=== PATIENT | male | born 1950 | race Caucasian/White ===

== ENCOUNTER → 2018-08-23 | Outpatient (CLI) | payer OTHER ==
--- NOTE | 2018-08-23 16:41 | Diagnostic Imaging Report ---
EXAM: XR CHEST 2 VIEWS DATE: 08/23/2018 3:40 PM INDICATION: Abnormality pulmonary function test, smoker COMPARISON: None FINDINGS: Lines and Tubes: None Heart and Mediastinum: No acute cardiomediastinal findings. Lungs and Pleura: Streaky opacities in the lung bases. Nodular density right lung base. Bones and Soft Tissues: No acute findings. IMPRESSION: 1. Streaky basilar opacities may represent atelectasis. 2. Small nodular density right lung base, possibly granuloma. 3. Radiographic follow-up and/or CT recommended given lack of comparisons. Signed by: Dr. Ulices Jarrett MD on 08/23/2018 4:37 PM
== END ==
LOC: RAD 15:32
PROVIDERS: ATTEND Family Medicine
DX: R94.2 Abnormal results of pulmonary function studies (principal)
CPT/HCPCS: 71046

== ENCOUNTER → 2018-09-06 | Outpatient (CLI) | payer OTHER ==
[~2018-09-06] MED LIST: IOPAMIDOL 370 MG/ML 200 ML INFUS..BTL INJ ONE; SODIUM CHLORIDE 0.9% 50ML 50 ML ONE
[2018-09-06 08:29] LABS: BLOOD UREA NITROGEN 11 mg/dL (7-26); BUN/CREATININE RATIO 11 (6-25); CREATININE, SERUM 0.99 mg/dL (0.72-1.25); EST GLOMERULAR FILTRATION RATE > 60 ML/MIN (60-)
--- NOTE | 2018-09-06 09:25 | Diagnostic Imaging Report ---
EXAM: CT Chest WITH contrast 09/06/2018 7:52 AM INDICATION: Abnormal PFTs COMPARISON: Chest radiograph 08/23/18. TECHNIQUE: Chest was scanned utilizing a multidetector helical scanner from the lung apex through the level of the adrenal glands without administration of IV contrast. Coronal and sagittal reformations were obtained. Routine protocol was performed. IV CONTRAST: 100 mL of Isovue 370 RADIATION DOSE: Total DLP: 477.8 mGy*cm COMPLICATIONS: None FINDINGS: LINES/ TUBES: None. LUNGS AND AIRWAYS: The central airways are patent. There is biapical pleural-parenchymal thickening. There is a 6 mm solid pulmonary nodule in the left upper lobe on series 3, image 17. 2 mm calcified subpleural nodule in the right upper lobe on image 30. There is a 6 mm calcified granuloma in the right lower lobe on image 54. PLEURA: The pleural spaces are clear. HEART AND MEDIASTINUM: The thyroid gland is normal. There are calcified right peribronchial lymph nodes. No mediastinal, hilar or axillary lymphadenopathy. No cardiomegaly or pericardial effusion. Scattered coronary atherosclerosis. UPPER ABDOMEN: Limited non-contrast views of the upper abdomen show no abnormality within the visualized adrenal glands. There is diffuse mild fatty liver. There are calcified splenic granulomas. BONES AND SOFT TISSUES: No acute bony abnormality. No suspicious lytic or blastic lesions. Mild degenerative changes in the thoracic spine. IMPRESSION: No acute intrathoracic abnormality. Non-calcified 6 mm left upper lobe solid pulmonary nodule. Given the presence of calcified granulomas and calcified intrathoracic lymph nodes, the finding may represent a non-calcified granuloma. However a follow-up chest CT is suggested in 6-12 months to assess for stability. Sequela of prior granulomatous disease as above. Diffuse mild fatty liver. Signed by: Dr. Jhonathan Gray MD on 09/06/2018 9:22 AM
== END ==
LOC: CT 07:41
PROVIDERS: ATTEND Family Medicine
DX: R94.2 Abnormal results of pulmonary function studies (principal)
CPT/HCPCS: 36415; 71260; 82565; 84520; Q9967

== ENCOUNTER → 2018-10-29 | Day surgery (SDC) | payer OTHER ==
--- NOTE | 2018-10-28 14:31 | Diagnostic Imaging Report ---
EXAMINATION: PA and lateral views of the chest. COMPARISON: 08/23/2018, CT chest 09/06/2018 CLINICAL HISTORY: Preoperative study for circumcision DISCUSSION: Lungs are well-inflated. Slight granulomata in the right lower lobe. 6 mm noncalcified left apical nodule described on comparison CT is not identified by plain radiography. No consolidation, pleural effusion, or pneumothorax. Stable linear scar or atelectasis in the right middle lobe. Diffuse calcification of the anterior spinal longitudinal ligament. IMPRESSION: No acute cardiopulmonary abnormalities. Signed by: Dr. Geo Davis M.D. on 10/28/2018 2:27 PM
[~2018-10-29] MED LIST changes: +BUPIVACAINE 0.25% 30ML SDV INJ ONE; +CALCIUM PO; +CEFAZOLIN SOD 1 GM/NS 50ML 50 ML IV ONE; +DEXAMETHASONE SOD PHOS INJ 4 MG/ML VIAL ONE; +FENTANYL CITRATE/PF 100MCG/2 ML INJ ONE; +FIBERCON625 MG PO; +FISH OIL 1,4001 EACH PO; +HYZAAR 100-251 EACH PO; -IOPAMIDOL 370 MG/ML 200 ML INFUS..BTL INJ ONE; +LIDOCAINE HCL 2% LOCAL INJ 5 ML SDV VIAL INJ ONE; +LORATADINE10 MG PO; +METFORMIN HCL500 MG PO; +MIDAZOLAM HCL 2 MG/2 ML VIAL ONE; +NEOSTIGMINE 1 MG/ML 10ML VIAL ONE; +NIACIN100 MG PO; +ONDANSETRON HCL INJ 2MG/ML 2ML 2 MG/ML VIAL ONE; +PREVACID15 MG PO; +PROPOFOL IV EMULSION 10 MG/ML 20 ML VIAL ONE; +SEVOFLURANE INHAL SOLN 250 ML PEN BTL ONE; -SODIUM CHLORIDE 0.9% 50ML 50 ML ONE; +ZOCOR20 MG PO
--- OUTSIDE RECORDS SUMMARY | 2018-10-29 08:07 | XMS REPORT ---
Author [facility] Address Unknown Phone Unavailable Care Team Providers Care Dna Sequencing Associate Name Role Phone ASHLIE WELLS Unavailable Unavailable SHELBI PHELAN Unavailable Unavailable Problems This patient has no known problems. Allergies, Adverse Reactions, Alerts This patient has no known allergies or adverse reactions. Medications This patient has no known medications. Results Test Description Test Time Test Comments Text Results Atomic Results Result Comments CHEST 2 VIEWS 2018-10-28 14:23:00 [place] [address] Patient Name: CHELSI HERNANDEZ MR #: [id number] : 1950 Age/Sex: 68/M Req #: [id number] Adm Physician: Ordered by: ASHLIE WELLS MD Report #: [id number] Location: OR Room/Bed: Procedure: [id number] DX/CHEST 2 VIEWS Exam Date: Exam Time: REPORT STATUS: Signed EXAMINATION: PA and lateral views of the chest. COMPARISON: 08/23/2018, CT chest 09/06/2018 CLINICAL HISTORY: Preoperative study for circumcision DISCUSSION: Lungs are well-inflated. Slight granulomata in the right lower lobe. 6 mm noncalcified left apical nodule described on comparison CT is not identified by plain radiography. No consolidation, pleural effusion, or pneumothorax. Stable linear scar or atelectasis in the right middle lobe. Diffuse calcification of the anterior spinal longitudinal ligament. IMPRESSION: No acute cardiopulmonary abnormalities. Signed by: Dr. Leonor Adkins M.D. on 10/28/2018 2:27 PM Dictated By: LEONOR ADKINS MD 26 Transcribed By: VIDHI on 10/28/181426 COPY TO: ASHLIE WELLS MD CT CHEST W 2018-09-06 09:11:00 [place] [address] Patient Name: CHELSI HERNANDEZ MR #: [id number] : 1950 Age/Sex: 68/M Req #: [id number] Adm Physician: Ordered by: SHELBI PHELAN MD Report #: [id number] Location: CT Room/Bed: Procedure: [id number] CT/CT CHEST W Exam Date: 09/06/18 Exam Time: 0850 REPORT STATUS: Signed EXAM: CT Chest WITH contrast 09/06/2018 7:52 AM INDICATION: Abnormal PFTs COMPARISON: Chest radiograph 08/23/18. TECHNIQUE: Chest was scanned utilizing a multidetector helical scanner from the lung apex through the level of the adrenal glands without administration of IV contrast. Coronal and sagittal reformations were obtained. Routine protocol was performed. IV CONTRAST: 100 mL of Isovue 370 RADIATION DOSE: Total DLP: 477.8 mGy*cm COMPLICATIONS: None FINDINGS: LINES/ TUBES: None. LUNGS AND AIRWAYS: The central airways are patent. There is biapical pleural-parenchymal thickening. There is a 6 mm solid pulmonary nodule in the left upper lobe on series 3, image 17. 2 mm calcified subpleural nodule in the right upper lobe on image 30. There is a 6 mm calcified granuloma in the right lower lobe on image 54. PLEURA: The pleural spaces are clear. HEART AND MEDIASTINUM: The thyroid gland is normal. There are calcified right peribronchial lymph nodes. No mediastinal, hilar or axillary lymphadenopathy. No cardiomegaly or pericardial effusion. Scattered coronary atherosclerosis. UPPER ABDOMEN: Limited non-contrast views of the upper abdomen show no abnormality within the visualized adrenal glands. There is diffuse mild fatty liver. There are calcified splenic granulomas. BONES AND SOFT TISSUES: No acute bony abnormality. No suspicious lytic or blastic lesions. Mild degenerative changes in the thoracic spine. IMPRESSION: No acute intrathoracic abnormality. Non- calcified 6 mm left upper lobe solid pulmonary nodule. Given the presence of calcified granulomas and calcified intrathoracic lymph nodes, the finding may represent a non-calcified granuloma. However a follow-up chest CT is suggested in 6-12 months to assess for stability. Sequela of prior granulomatous disease as above. Diffuse mild fatty liver. Signed by: Dr. Cyndi Burciaga MD on 09/06/2018 9:22 AM Dictated By: CYNDI BURCIAGA MD 1 Transcribed By: VIDHI on 09/06/18921 COPY TO: SHELBI PHELAN MD CHEST 2 VIEWS 2018-08-23 16:36:00 [place] [address] Patient Name: CHELSI HERNANDEZ MR #: [id number] : 1950 Age/Sex: 68/M Req #: [id number] Adm Physician: Ordered by: SHELBI PHELAN MD Report #: [id number] Location: [facility] Room/Bed: Procedure: [id number] DX/CHEST 2 VIEWS Exam Date: 08/23/18 Exam Time: 1546 REPORT STATUS: Signed EXAM: XR CHEST 2 VIEWS DATE: 08/23/2018 3:40 PM IND ICATION: Abnormality pulmonary function test, smoker COMPARISON: None FINDINGS: Lines and Tubes: None Heart and Mediastinum: No acute cardiomediastinal findings. Lungs and Pleura: Streaky opacities in the lung bases. Nodular density right lung base. Bones and Soft Tissues: No acute findings. IMPRESSION: 1. Streaky basilar opacities may represent atelectasis. 2. Small nodular density right lung base, possibly granuloma. 3. Radiographic follow-up and/or CT recommended given lack of comparisons. Signed by: Dr. Ulices Jarrett MD on 08/23/2018 4:37 PM Dictated By: ULICES JARRETT MD 1637 Transcribed By: VIDHI on 08/23/18 163 COPY TO: SHELBI PHELAN MD
--- NOTE | 2018-11-08 03:00 | Operative Report ---
DATE OF PROCEDURE: 10/29/2018 SURGEON: Gregorio Zuniga MD PREOPERATIVE DIAGNOSES: Phimosis. POSTOPERATIVE DIAGNOSIS: Phimosis. OPERATIONS PERFORMED: 1. Circumcision. 2. Regional nerve block (separate procedure performed for postoperative pain control and not required for the actual performance of the surgery, which was done under general anesthesia). ANESTHESIA: General. COMPLICATIONS: None. CLINICAL SUMMARY: Bakari Go is a 68-year-old man with phimosis due to diabetes mellitus. He also has balanoposthitis. He is brought for circumcision. He is aware of the risks of bleeding, infection, injury to adjacent structures, and the fact that his glans penis will always be uncovered. He understood all these risks and elected to proceed. OPERATIVE PROCEDURE IN DETAIL: Informed consent was verified. Bakari Go was properly identified, taken to the operating room, and placed on the operating table in supine position. Anesthesia was uneventfully begun. The patient's genitalia were then shaved, prepared and draped in usual sterile fashion. Marcaine with epinephrine was utilized to infiltrate subcutaneously and circumferentially at the base of the penis as well as in the region of the dorsal penile nerves. This was done for postoperative pain control and not required for the actual performance of the surgery, which was done under general anesthesia. A circumferential incision was then made overlying the zaman of the glans penis. The foreskin was fully retracted and secondary incision was made approximately 5 mm away from the zaman of the glans penis along the inner preputial skin. A sleeve circumcision was then performed. The foreskin was removed. Pinpoint electrocautery was utilized to achieve hemostasis. The patient's incision was then approximated with 4-0 chromic suture in running fashion. Dressings were applied with bacitracin ointment followed by Xeroform gauze, followed by loose-fitting Lazaro and the patient was uneventfully reversed from anesthesia and taken to recovery room in stable condition. There were no complications to the procedure. The patient tolerated the procedure well. Sponge, needle, and instrument counts were of course correct x2 at the end the case. Estimated blood loss was minimal. Exclusive postoperative instructions were given. We will follow the patient up in the office. Gregorio Zuniga MD [place]/MODL /[id number] cc: [place] Gould MD
== END | disposition home or self-care (01) ==
LOC: OR 08:06
PROVIDERS: ATTEND Urology
DX: N47.1 Phimosis (principal); E11.9 Type 2 diabetes mellitus without complications; I10 Essential (primary) hypertension; E78.5 Hyperlipidemia, unspecified; K21.9 Gastro-esophageal reflux disease without esophagitis; Z79.84 Long term (current) use of oral hypoglycemic drugs; Z88.8 Allergy status to other drugs, medicaments and biological substances; N47.6 Balanoposthitis; R35.1 Nocturia; Z12.5 Encounter for screening for malignant neoplasm of prostate; R81 Glycosuria
CPT/HCPCS: 36415; 54161; 71046; 82948; 88304; 93005; J0690; J1100; J2001; J2250; J2405; J2704; J2710; 88302